=== PATIENT | male | born 1950 | race Caucasian/White ===

== ENCOUNTER → 2016-10-22 | Outpatient (CLI) | payer OTHER ==
[~2016-10-22] VITALS: Ht 180.3 cm; Wt 87.6 kg
[~2016-10-22] MED LIST: AMLODIPINE-BEN1 EAC2 PO; ASPIR 8181 M1 PO; CRESTOR10 MG PO; DIPHENHIST50 MG PO; GLUCOSAMINE CH1 EAC2 PO; PREDNISONE 20 M20 MG PO; SIMVASTATIN40 MG PO
--- NOTE | ~2016-10-22 | H ---
[facility] [place] [address] HISTORY AND PHYSICAL Name: HENRY MEJIA Room #: REG ZOYAJai Dickerson#: [id number] Admission: 10/22/16 Attend Phys: Noah Armendariz Discharge: Date of : 48 Report #: [id number] THIS REPORT FOR: //name// CC: Abimael Armendariz DATE OF SERVICE: 10/22/2016 HISTORY OF PRESENT ILLNESS: This is a very pleasant gentleman who was seen in the office for chest discomfort. He underwent noninvasive evaluation with CT angio that demonstrated significant high-grade lesion in the LAD and the left circumflex system. The patient admitted to have symptomatology with exertion as noted in the office visit. No worsening of the symptomatology currently. PHYSICAL EXAMINATION: GENERAL: Well-developed white male, resting comfortably in no acute distress HEENT: Normocephalic, atraumatic. Pupils are equal, round, reactive to light and accommodation. Extraocular muscles are intact. Sclerae and conjunctivae are anicteric. NECK: JVD is normal. Carotid upstrokes are bilaterally symmetrical. No bruits are heard. No thyromegaly. No lymphadenopathy. LUNGS: Clear to auscultation. No wheezes, rhonchi or crackles. No CVA tenderness. CARDIAC: Demonstrates a regular rhythm. Normal first and second heart sounds. No ventricular or atrial gallops, no rubs noted. No murmurs. No lifts or heaves, PMI normal. ABDOMEN: Soft, nontender, nondistended. Normal bowel sounds. EXTREMITIES: Without cyanosis, clubbing or edema. Distal pulses are intact. DTR symmetrical. NEUROLOGIC: Cranial nerves 2-12 are grossly normal and symmetrical. PSYCHIATRIC: Alert, oriented with normal affect. SKIN: Warm and dry. IMPRESSION: Chest pain suspicious for angina in an individual that has an elevated calcium score and a CT angio that demonstrates at least 2-vessel coronary artery disease. Risks and complications of cardiac catheterization were discussed. The patient voices understanding and wished to proceed. <ELECTRONICALLY SIGNED> By: Noah Armendariz MD 10/23/16 1154 1159 1227 Noah Armendariz MD /nt
--- NOTE | ~2016-10-22 | CATHLAB ---
[facility] [place] [address] INVASIVE PROCEDURE REPORT Name: HENRY MEJIA [id number] Admission: 10/22/16 Attend Phys: Noah Orosco Discharge: Date of : 48 Date of Service: 10/23/16 0711 Report #: [id number] THIS REPORT FOR: //name// CC: Abimael Armendariz DATE OF SERVICE: 10/22/2016 DATE OF SERVICE: 10/22/2016. INDICATIONS: A 65-year-old male patient with elevated calciums score, abnormal CT angio of the coronaries and significant risk factors. PROCEDURES: 1. Left heart catheterization. 2. Selective left and right coronary angiography. 3. Measurement of left ventricular end diastolic pressures. 4. Supervision of conscious sedation. CRTS: Noah Armendariz M.D. BRIEF DESCRIPTION OF PROCEDURE: After informed consent was obtained, the patient was brought to the cardiac catheterization laboratory in stable condition. The patient's right groin was prepped and draped in the usual sterile manner after which lidocaine was then instilled. Utilizing a modified Seldinger technique, the right femoral artery was then accessed. Under fluoroscopic visualization using selective coronary catheters, the right and left coronaries were opacified and visualized. The left ventriculogram was likewise imaged per standard protocol with EDP being measured. Subsequent to this, the sheath was removed, hemostasis achieved. The patient tolerated the procedure well. There were no complications. FINDINGS: 1. HEMODYNAMICS: A. Aortic pressure 137/79. B. Left ventricular end diastolic pressures 20-26. 2. FLUOROSCOPY: Under fluoroscopic visualization there was extensive calcific plaquing on the epicardial coronary arteries. No significant plaquing on the valvular or intramyocardial structures of the heart. 3. ANGIOGRAPHY: This is a right coronary dominant system. A. The left main is normal origin and caliber, bifurcates left anterior descending and left circumflex and is free of high-grade disease. B. Left anterior descending is a moderate caliber type 3 vessel which has a region of eccentricity in its mid portion. The region appears to be between 50% and 65% stenosed depending of the angulation and view. Does not appear to be [facility] [address] [place] [address] INVASIVE PROCEDURE REPORT Name: JACKIEHENRY Room #: DAYLIN Dickerson#: [id number] Admission: 10/22/16 Attend Phys: Noah Orosco Discharge: Date of : 48 Date of Service: 10/23/16 0711 Report #: [id number] flow limiting as the LAD continues in the anterior interventricular sulcus giving rise to septal and diagonal branches hooking the apex and terminating in inferior posterior apical region. C. Left circumflex is a nondominant vessel which has only luminal irregularities noted as it then proceeds posteriorly giving rise to marginal branches. D. Right coronary artery is of normal origin and caliber, has mild luminal irregularities of less than 30-40%. It courses posteriorly and gives rise to moderate caliber posterior descending artery free of high-grade disease. The distal right coronary artery has moderate lesions, but it is quite diminutive in size. IMPRESSION: 1. Coronary artery disease, moderate, single vessel. 2. Normal hemodynamics. <ELECTRONICALLY SIGNED> By: Noah Armendariz MD 10/23/16 1152 0711 0731 Noah Armendariz MD /nt
[2016-10-22 11:40] VITALS: BP 140/79
[2016-10-22 11:44] LABS: HEMATOCRIT 47.8 % (42.0-52.0); HEMOGLOBIN 16.3 gm/dL (14.0-18.0); MCHC 34.1 % (28.0-37.0); MCV 85.1 fL (80.0-100.0); RBC 5.61 mil/uL (4.50-6.00); RDW 13.4 % (10.5-14.5); WBC 12.8 thou/uL (4.0-11.0)
[2016-10-22 11:53] LABS: CALCIUM 9.6 mg/dL (8.5-10.1); CREATININE 1.1 mg/dL (0.6-1.3)
[2016-10-22 11:58] LABS: PROTIME 10.8 Seconds (9.3-11.4)
== END | disposition home or self-care (01) ==
LOC: CATH 09:56
PROVIDERS: Internal Medicine
DX: I25.10 Atherosclerotic heart disease of native coronary artery without angina pectoris (principal)

== ENCOUNTER → 2020-05-28 | Outpatient (CLI) | payer MEDICARE | LOC: SJCVC 14:33 | PROVIDERS: ATTEND Internal Medicine | DX: I25.10 Atherosclerotic heart disease of native coronary artery without angina pectoris (principal); R00.1 Bradycardia, unspecified; I10 Essential (primary) hypertension; E78.5 Hyperlipidemia, unspecified; Z79.899 Other long term (current) drug therapy ==